=== PATIENT | male | born 1980 | race Two or more races ===

== ENCOUNTER 2020-03-21 23:35 | Inpatient (IN) | payer BC, OTHER ==
[~2020-03-21] VITALS: Ht 175.3 cm; Wt 117.9 kg
[~2020-03-21 23:35] MED LIST: NKM
[2020-03-21] MEDS ORDERED: Aspirin Baby 81mg ORAL ONE (23:45)
[2020-03-21] MEDS ORDERED: Pantoprazole Inj IVP ONE (23:45)
--- NOTE | 2020-03-21 23:45 | NUR ---
ED Nurse Note: pt presents to ED from home c/o mid-sternal CP that radiates to his R arm, teeth and head. pt states that the initial onset was 1 week ago but usually goes away after an hour or two. this episode started 1 hour SMELLER while pt was resting, denies N/V associated with the pain. rates the px a 5/10 that he describes as "pressure."
[2020-03-21 23:47] VITALS: BP 131/100
--- NOTE | 2020-03-21 23:48 | Emergency Room Report ---
History of Present Illness General Chief Complaint: Chest Pain Source: Patient Present Illness HPI This is a 40-year-old male with no past medical history. He presents with chief complaint chest pain. He said is been on and off for a week. Usually lasts about 2 hours. He said he has pain and localized to the epigastric area. Radiating to his back and jaw and teeth area. He said right arm felt numb. Nothing made it better. Nothing made it worse. This most recent episode occurred about an hour ago. It occurred while he was sitting down after eating. He denies any fever chills but denies any nausea vomiting. No diaphoresis. No shortness of breath. Allergies: Coded Allergies: No Known Allergies (Unverified , 05/08/13) COVID-19 Screening Contact w/high risk pt: No Recent Travel to affected area: No Experienced COVID-19 symptoms?: No COVID-19 Testing performed OUTREACH CLINICIAN: No Patient History Past Medical History: none, see triage record, old chart reviewed Past Surgical History: none Pertinent Family History: none Social History: Denies: smoking Immunizations: other Reviewed Nursing Documentation: PMH: Agreed; PSxH: Agreed Nursing Documentation-PMH Past Medical History: No Stated History Hx Cardiac Problems: No Hx Hypertension: No Hx Pacemaker: No Hx Asthma: No Hx COPD: No Hx Diabetes: No Hx Cancer: No Hx Gastrointestinal Problems: No Hx Dialysis: No History Of Psychiatric Problem: No Hx Neurological Problems: No Hx Cerebrovascular Accident: No Hx Seizures: No Review of Systems Eye: Denies: eye pain, blurred vision ENT: Denies: ear pain, nose congestion, throat swelling Respiratory: Denies: cough, shortness of breath Cardiovascular: Reports: chest pain; Denies: palpitations Gastrointestinal: Denies: abdominal pain, diarrhea, nausea, vomiting Musculoskeletal: Denies: back pain, joint pain Skin: Denies: rash Neurological: Denies: headache, numbness Endocrine: Denies: increased thirst, increased urine Hematologic/Lymphatic: Denies: easy bruising All Other Systems: negative except mentioned in HPI Physical Exam Vital Signs Date Time Temp Pulse Resp B/P (MAP) Pulse Ox O2 Delivery O2 Flow Rate FiO2 03/21/20 23:41 97.7 95 20 131/100 (110) 100 Room Air Vitals with high blood pressure Sp02 EP Interpretation: reviewed, normal General Appearance: well appearing, no apparent distress, alert, obese Head: normocephalic, atraumatic Eyes: bilateral eye PERRL, bilateral eye EOMI ENT: hearing grossly normal, normal pharynx Neck: full range of motion, supple, no meningismus Respiratory: chest non-tender, lungs clear, normal breath sounds Cardiovascular #1: regular rate, rhythm, no murmur Gastrointestinal: normal bowel sounds, non tender, no mass, no organomegaly, no bruit, non-distended Musculoskeletal: back normal, normal range of motion, gait/station normal Psychiatric: mood/affect normal Medical Decision Making Diagnostic Impression: Primary Impression: Chest pain Qualified Codes: R07.9 - Chest pain, unspecified Additional Impression: Obesity (BMI 35.0-39.9 without comorbidity) ER Course Patient presents with chest pain. It is intermittent in nature is been going on for a week. This is concerning for potential ACS. Could also be reflux, pneumonia, PE, dissection to name a few. He is pain-free now. [place] better. Because of his risk factors, will admit for chest pain rule out. I discussed the case with Dr. Stacy who will admit. EKG Diagnostic Results Rate: normal Rhythm: NSR ST Segments: no acute changes Rhythm Strip Diag. Results EP Interpretation: yes Rate: 90 Rhythm: NSR, no PVC's, no ectopy Chest X-Ray Diagnostic Results Chest X-Ray Diagnostic Results : Chest X-Ray Ordered: Yes # of Views/Limited/Complete: 1 View Indication: Chest Pain EP Interpretation: Yes Interpretation: no consolidation, no effusion, no pneumothorax, no acute cardiopulmonary disease Impression: No acute disease Electronically Signed by: Casimiro Gallo MD Last Vital Signs Date Time Temp Pulse Resp B/P (MAP) Pulse Ox O2 Delivery O2 Flow Rate FiO2 03/21/20 23:41 97.7 95 20 131/100 (110) 100 Room Air Status: improved Disposition: ADMITTED INPATIENT Condition: Serious Casimiro Gallo MD March 21, 2020 23:48
[2020-03-21 23:58] LABS: BASOPHILS % (AUTO) 0.6 % (0.0-2.0); EOSINOPHILS % (AUTO) 1.6 % (0.0-3.0); HEMATOCRIT 45.7 % (42.0-52.0); HEMOGLOBIN 16.1 G/DL (14.2-18.0); LYMPHOCYTES % (AUTO) 36.4 % (20.0-45.0); MEAN CORPUSCULAR VOLUME 81 FL (80-99); NEUTROPHILS % (AUTO) 55.3 % (45.0-75.0); PLATELET COUNT 282 K/UL (150-450); RED BLOOD COUNT 5.63 M/UL (4.70-6.10); RED CELL DISTRIBUTION WIDTH 11.5 % (11.6-14.8); WHITE BLOOD COUNT 9.8 K/UL (4.8-10.8)
[2020-03-22] VITALS (7 sets, daily range): BP systolic 116–140; BP diastolic 77–85
[2020-03-22 00:08] LABS: ANION GAP 8 mmol/L (5-15); BLOOD UREA NITROGEN 16 mg/dL (7-18); CALCIUM 9.2 MG/DL (8.5-10.1); CARBON DIOXIDE 30 MMOL/L (21-32); CHLORIDE 100 MMOL/L (98-107); CREATININE 1.1 MG/DL (0.55-1.30); POTASSIUM 3.8 MMOL/L (3.5-5.1); SODIUM 138 MMOL/L (136-145)
[2020-03-22 00:13] LABS: ALANINE AMINOTRANSFERASE 82 U/L (12-78); ALBUMIN 3.9 G/DL (3.4-5.0); ALBUMIN/GLOBULIN RATIO 0.8 (1.0-2.7); ALKALINE PHOSPHATASE 85 U/L (46-116); ASPARTATE AMINO TRANSFERASE 43 U/L (15-37); BILIRUBIN,TOTAL 0.6 MG/DL (0.2-1.0)
[2020-03-22 01:01] LABS: APPEARANCE,URINE CLEAR; BILIRUBIN, URINE NEGATIVE (NEGATIVE); COLOR,URINE PALE YELLOW; GLUCOSE, URINE (UA) NEGATIVE (NEGATIVE); KETONES,URINE NEGATIVE (NEGATIVE); LEUKOCYTE ESTERASE ,URINE NEGATIVE (NEGATIVE); NITRITE,URINE NEGATIVE (NEGATIVE); PH,URINE 6.5 (4.5-8.0); PROTEIN,URINE NEGATIVE (NEGATIVE); UROBILINOGEN,URINE 1 MG/DL (0.0-1.0)
--- NOTE | 2020-03-22 01:09 | NUR ---
ED Nurse Note: reports given to JACIEL Cohen, asked to bring pt up in 10 min
--- NOTE | 2020-03-22 02:20 | NUR ---
NURSE NOTES: Received patient report from DESIREE Richards RN. Patient transferred from ER via [facility] without incident. Patient is AO x 4 on room air. He shows no signs of distress at the time. He says he feels pressure on his chest when pushed on abdomen. IV patent and flushed. There are no signs of erythema, infiltration, or bleeding at the time. Bed in the lowest position, call light within reach, side rails up x 2. Called Dr. Stacy for admitting orders, awaiting for his call. Will continue plan of care.
--- NOTE | 2020-03-22 06:40 | NUR ---
Called for dr. Stacy again to ask for admitting orders. Awaiting for response.
--- NOTE | 2020-03-22 07:42 | NUR ---
HAND-OFF: Report given to JACIEL Camacho. Patient shows no signs of distress or pain at the time. Still have not gotten admition orders, endorsed to Timi. .
--- NOTE | 2020-03-22 07:53 | NUR ---
NURSE NOTES: Received pt from RN Vicki [id number]. Pt is alert and awake, pt is in RA, no SOB or acute respiratory distress noted. pt has intact iv access LAC 20g SL.Pt is on continues heart monitoring.pt is eating breakfast by observation. Dr Stacy called now and gave RN orders noted and carried out. all needs attended, bed is locked and is in the lowest position, call light within easy reach. will continue to monitor.
[2020-03-22] MEDS ORDERED: Miralax 17gm pkt ORAL PRN (08:00)
[2020-03-22] MEDS: Omnipaque-300 100ml vial INJ SCH (08:00)
--- NOTE | 2020-03-22 08:14 | NUR ---
NURSE NOTES: pt signed consent form for contrast.
[2020-03-22 08:57] LABS: CHOLESTEROL 122 MG/DL (< 200); HDL CHOLESTEROL 34 MG/DL (40-60); TRIGLYCERIDES 90 MG/DL (30-150)
[2020-03-22] MEDS ORDERED: Aspirin Baby 81mg ORAL SCH (09:00)
--- NOTE | 2020-03-22 09:53 | NUR ---
CASE MANAGEMENT:REVIEW 40 YR OLD MALE PRESENTED TO ER CC: CHEST PAIN SI: ACS. OBESITY 97.7 95 20 131/100 100% ON RA GLUCOSE+167 AST/ALT+43/82 TROPONIN(-) IS: ASA PO IV PROTONIX CHEST XRAY : TO TELEMETRY DCP: FROM HOME PLAN: CT CHEST 2DECHO
--- NOTE | 2020-03-22 10:51 | Diagnostic Imaging Report ---
Procedure: XRAY Chest 1v Reason for study: Chest pain Comparison films: None. FINDINGS: A single one view chest is obtained. Vascularity is normal. The lung earl are clear bilaterally. Cardiac and mediastinal silhouette are within normal limits. CP angles are sharp. The bony thorax appear unremarkable. IMPRESSION: NO ACUTE CARDIOPULMONARY DISEASE.
--- NOTE | 2020-03-22 11:04 | Diagnostic Imaging Report ---
EXAM: CT CT Chest Abdomen Pelvis w/Cont INDICATION: Chest pain that radiates to the arm teeth and head. Abdominal discomfort. COMPARISON: None TECHNIQUE: Axial images were obtained through the chest, abdomen and pelvis with intravenous contrast. Sagittal and coronal reformats are generated. All CT scans at this facility are performed using dose modulation techniques as appropriate to a performed exam including the following: automated exposure control with adjustment of the mA and/or kV according to patient size. RADIATION DOSE: CTDIvol: 114.2 mGy DLP: 1598.6 mGy-cm Dose information generated by the CT scanner is available in PACS. CHEST FINDINGS: The lungs are clear bilaterally. Cardiac and mediastinal structures are within normal limits. There is no pathologic size adenopathy. There is no effusion. ABDOMEN/PELVIS FINDINGS: The liver is diffusely hypodense and fatty. Spleen is homogeneous. Gallbladder is without sludge or stone and there is no wall thickening. The pancreas is unremarkable. Adrenals are normal in morphology. Kidneys are unremarkable except for small left renal cyst. Small bowel loops are nondistended. Mild increased stool lucencies noted throughout the colon. The appendix is normal. There is no free fluid or free air. No pathologic adenopathy demonstrated. Urinary bladder appears unremarkable. There are no suspicious superficial soft tissue or osseous abnormality. IMPRESSION: NO SIGN OF ACUTE DISEASE IN THE CHEST, ABDOMEN AND PELVIS. FATTY LIVER. LEFT RENAL CYST. MILD INCREASED STOOL LUCENCIES THROUGHOUT THE COLON
--- NOTE | 2020-03-22 13:18 | Consultation ---
History of Present Illness General Date patient seen: March 22, 2020 Chief Complaint: Chest Pain Present Illness HPI 40-year-old male with no past medical history presented to ER with chief complaint chest pain, on and off for a week. Usually lasts about 2 hours. He said he has pain and localized to the epigastric area. Radiating to his back and jaw and teeth area. It occurred while he was sitting down after eating. He denies any fever chills but denies any nausea vomiting. He is admitted to telemetry for further management. Allergies: Coded Allergies: No Known Allergies (Unverified , 05/08/13) Medication History Scheduled No Known Medications* (NKM - No Known Medications*), 0 ., (Reported) Patient History Healthcare decision maker Resuscitation status Advanced Directive on File Past Medical/Surgical History Past Medical/Surgical History: (1) Obesity (BMI 35.0-39.9 without comorbidity) Review of Systems All Other Systems: negative except mentioned in HPI Physical Exam General Appearance: obese Lines, tubes and drains: peripheral HEENT: normocephalic, atraumatic Neck: non-tender, normal alignment, supple Respiratory/Chest: chest wall non-tender, lungs clear Breasts: no masses Cardiovascular/Chest: normal peripheral pulses, normal rate Abdomen: normal bowel sounds, non tender Genitourinary/Rectal: normal genital exam, normal rectal exam Extremities: normal range of motion, non-tender Skin Exam: normal pigmentation Last 24 Hour Vital Signs Date Time Temp Pulse Resp B/P (MAP) Pulse Ox O2 Delivery O2 Flow Rate FiO2 03/22/20 12:00 98.4 96 18 126/84 (98) 100 03/22/20 11:34 77 03/22/20 09:00 Room Air 03/22/20 08:00 98.1 95 18 140/85 (103) 99 03/22/20 07:43 92 03/22/20 04:00 97.7 75 20 116/77 (90) 98 03/22/20 04:00 73 03/22/20 02:59 86 03/22/20 02:16 Room Air 03/22/20 01:35 97.7 20 133/82 97 Room Air 03/22/20 01:00 97.7 20 133/82 (99) 97 03/22/20 00:19 128/78 5/28/20 23:47 95 20 Room Air 03/21/20 23:47 97.7 95 20 131/100 100 Room Air 03/21/20 23:41 97.7 95 20 131/100 (110) 100 Room Air Intake and Output 03/21/20 03/22/20 19:00 07:00 Intake Total 50 ml Balance 50 ml Intake Oral 50 ml # Voids 1 Laboratory Tests Test 03/21/20 23:45 03/22/20 00:15 03/22/20 08:20 03/22/20 12:30 White Blood Count 9.8 K/UL (4.8-10.8) Red Blood Count 5.63 M/UL (4.70-6.10) Hemoglobin 16.1 G/DL (14.2-18.0) Hematocrit 45.7 % (42.0-52.0) Mean Corpuscular Volume 81 FL (80-99) Mean Corpuscular Hemoglobin 28.5 PG (27.0-31.0) Mean Corpuscular Hemoglobin Concent 35.1 G/DL (32.0-36.0) Red Cell Distribution Width 11.5 % (11.6-14.8) L Platelet Count 282 K/UL (150-450) Mean Platelet Volume 7.3 FL (6.5-10.1) Neutrophils (%) (Auto) 55.3 % (45.0-75.0) Lymphocytes (%) (Auto) 36.4 % (20.0-45.0) Monocytes (%) (Auto) 6.0 % (1.0-10.0) Eosinophils (%) (Auto) 1.6 % (0.0-3.0) Basophils (%) (Auto) 0.6 % (0.0-2.0) Sodium Level 138 MMOL/L (136-145) Potassium Level 3.8 MMOL/L (3.5-5.1) Chloride Level 100 MMOL/L (98-107) Carbon Dioxide Level 30 MMOL/L (21-32) Anion Gap 8 mmol/L (5-15) Blood Urea Nitrogen 16 mg/dL (7-18) Creatinine 1.1 MG/DL (0.55-1.30) Estimat Glomerular Filtration Rate > 60 mL/min (>60) Glucose Level 167 MG/DL (74-106) H Calcium Level 9.2 MG/DL (8.5-10.1) Total Bilirubin 0.6 MG/DL (0.2-1.0) Aspartate Amino Transf (AST/SGOT) 43 U/L (15-37) H Alanine Aminotransferase (ALT/SGPT) 82 U/L (12-78) H Alkaline Phosphatase 85 U/L (46-116) Troponin I 0.000 ng/mL (0.000-0.056) 0.000 ng/mL (0.000-0.056) Total Protein 8.5 G/DL (6.4-8.2) H Albumin 3.9 G/DL (3.4-5.0) Globulin 4.6 g/dL Albumin/Globulin Ratio 0.8 (1.0-2.7) L Urine Color Pale yellow Urine Appearance Clear Urine pH 6.5 (4.5-8.0) Urine Specific [place] 1.015 (1.005-1.035) Urine Protein Negative (NEGATIVE) Urine Glucose (UA) Negative (NEGATIVE) Urine Ketones Negative (NEGATIVE) Urine Blood Negative (NEGATIVE) Urine Nitrite Negative (NEGATIVE) Urine Bilirubin Negative (NEGATIVE) Urine Urobilinogen 1 MG/DL (0.0-1.0) H Urine Leukocyte Esterase Negative (NEGATIVE) Urine Opiates Screen Negative (NEGATIVE) Urine Barbiturates Screen Negative (NEGATIVE) Phencyclidine (PCP) Screen Negative (NEGATIVE) Urine Amphetamines Screen Negative (NEGATIVE) Urine Benzodiazepines Screen Negative (NEGATIVE) Urine Cocaine Screen Negative (NEGATIVE) Urine Marijuana (THC) Screen Negative (NEGATIVE) Triglycerides Level 90 MG/DL (30-150) Cholesterol Level 122 MG/DL (< 200) LDL Cholesterol 85 mg/dL (<100) HDL Cholesterol 34 MG/DL (40-60) L Cholesterol/HDL Ratio 3.6 (3.3-4.4) Stool Occult Blood Pending Height (Feet): 5 Height (Inches): 9.00 Weight (Pounds): 260 Medications Current Medications Medications (Trade) Dose Ordered Sig/Katerine Route PRN Reason Start Time Stop Time Status Last Admin Dose Admin Acetaminophen (Tylenol) 650 mg Q6H PRN ORAL PAIN/FEVER 03/22/20 08:00 04/21/20 07:59 Aspirin (ASA) 81 mg DAILY ORAL 03/22/20 09:00 05/06/20 08:59 03/22/20 09:26 Barium Sulfate (Readi-Cat 2) 450 ml NOW PRN ORAL Radiology Procedure 03/22/20 08:00 03/24/20 07:58 Docusate Sodium (Colace) 250 mg BID ORAL 03/22/20 18:00 04/21/20 17:59 Heparin Sodium (Porcine) (Heparin 5000 units/ml) 5,000 units EVERY 8 HOURS SUBQ 03/22/20 14:00 05/06/20 13:59 Iohexol (OMNIPAQUE-300 100ml) 100 ml ONCE INJ 03/22/20 08:00 03/24/20 07:59 Ondansetron HCl (Zofran) 4 mg Q4H PRN IVP Nausea & Vomiting 03/22/20 08:00 04/21/20 07:59 Pantoprazole (Protonix) 40 mg DAILY ORAL 03/22/20 09:00 04/21/20 08:59 03/22/20 09:26 Polyethylene Glycol (Miralax) 17 gm DAILY PRN ORAL Constipation 03/22/20 08:00 04/21/20 07:59 03/22/20 11:13 Assessment/Plan Problem List: (1) Chest pain ICD Codes: R07.9 - Chest pain, unspecified SNOMED: 02260922, 624142023 Qualifiers: Qualified Codes: R07.9 - Chest pain, unspecified (2) Mild essential hypertension ICD Codes: I10 - Essential (primary) hypertension SNOMED: 96666406 (3) Constipation ICD Codes: K59.00 - Constipation, unspecified SNOMED: 56246639 (4) Obesity (BMI 35.0-39.9 without comorbidity) ICD Codes: E66.9 - Obesity, unspecified SNOMED: 151407014, 949613208 Assessment/Plan: telemetry monitoring serial troponin echo reviewed CT chest reviewed, no pathology Ion Thomas MD March 22, 2020 13:18
[2020-03-22] MEDS ORDERED: Heparin 5000 units/ml inj SUBQ SCH (14:00)
[2020-03-22] MEDS: Docusate 100mg cap ORAL SCH ×2 (14:12→17:34)
[2020-03-22] MEDS: Lactulose 20gm/30ml UDC ORAL SCH ×2 (14:12→17:34)
--- NOTE | 2020-03-22 14:55 | NUR ---
[facility] RECEIVED CALL [facility] TO PATIENT'S ROOM SO THEY CAN SPEAK DIRECTLY IF PATIENT WILL BE DISCHARGED IN 1-2 DAYS [facility] IS NOT INTERESTED IN TRANSFERRING IF PATIENT WILL BE HERE LONGER THAN 48HRS THEN THE [facility] WANTS TO TRANSFER PATIENT
[2020-03-22] MEDS: Sucralfate 1gm tab ORAL SCH (16:44)
--- NOTE | 2020-03-22 16:50 | NUR ---
*-* INSRUANCE * ALL CLINICALS AND REVIEWS HAVE BEEN FAXED TO: [facility] F: [phone]
[2020-03-22] MEDS ORDERED: Docusate 250mg cap ORAL SCH (18:00)
--- NOTE | 2020-03-22 18:11 | History & Physical ---
History and Physical History & Physicial James Stacy MD March 22, 2020 18:11
--- NOTE | 2020-03-22 19:08 | NUR ---
HAND-OFF: Report given to BARBARA PELLETIER. Pt is awake and stable, Endorsed plan of care.
--- NOTE | 2020-03-22 19:51 | NUR ---
NURSE NOTES: RECEIVED PATIENT LYING IN BED, AWAKE, ALERT/ORIENTED X4, VERBALLY RESPONSIVE, DENIES PAIN. ROOM AIR, NO SIGNS AND SYMPTOMS OF ACUTE CARDIO RESPIRATORY DISTRESS/SHORTNESS OF BREATH, DENIES CHEST PAIN, NO PERIPHERAL EDEMA NOTED, SINUS RHYTHM ON PROCESSING LEAD. IV INTACT TO LEFT AC/GAUGE 20, SALINE LOCK, NO REDNESS/SWELLING NOTED TO SITE. ABDOMEN ROUND/SOFT/NON TENDER/AUDIBLE BOWEL SOUNDS, NO NAUSEA/VOMITING. SIDE RAILS UP X2 FOR MOBILITY, BED IN LOWEST POSITION FOR SAFETY, ENCOURAGED PATIENT TO UTILIZE CALL LIGHT FOR ASSISTANCE, VERBALIZED UNDERSTANDING. CONTINUE WITH CURRENT PLAN OF CARE. NAD.
--- NOTE | 2020-03-22 21:08 | NUR ---
NURSE NOTES: PM SNACK PROVIDED, TOLERATED WELL-
--- NOTE | 2020-03-22 23:00 | History and Physical Report ---
DATE OF ADMISSION: 03/22/2020 CHIEF COMPLAINT: Right-sided abdominal pain, chest pain. HISTORY OF PRESENT ILLNESS: This is a 40-year-old very delightful gentleman, denies any past medical history or past surgical history, who presented to the hospital complaining about right-sided chest pain associated with abdominal pain. No nausea or vomiting. Complained about constipation. Pain is improving with stool softener, worsening with meals. Denies any loss of consciousness. Denies any fall or head trauma or abdominal trauma. However, patient stated he has been having a dark stool for past 2 days. Has been improved today. Patient's pain is mostly located in the right side of abdominal wall and epigastric, radiated to the back. Shortly after initial evaluation in the emergency department, patient was admitted to the hospital with atypical chest pain as well as right-sided abdominal pain. PAST MEDICAL HISTORY/PAST SURGICAL HISTORY: None. MEDICATIONS AT HOME: None. ALLERGIES: No known drug allergies. SOCIAL HISTORY: Denies any smoking, alcohol, or drugs at this time. However, he quit smoking about 6 years ago on and off for 7 to 8 years. He quit drinking in October of 2019. 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 FAMILY HISTORY: Mother and brother, history of diabetes. No history of coronary disease runs in the family. REVIEW OF SYSTEMS: Mostly as above. Denies any dysuria, frequency, or hematuria. Complained of dark stool on and off for past 2 days. It has been resolved. Complained of bloatedness, right-sided abdominal pain, right-sided chest pain radiated to the back, gas, and belching. Denies any loss of consciousness. Denies any fall or head trauma. PHYSICAL EXAMINATION: VITAL SIGNS: On admission from the emergency department, temperature 97.7, pulse of 95, respirations 20, and blood pressure 131/100. GENERAL: Patient is awake, responsive, no acute distress. HEAD AND NECK: Pupils are equal and reactive to light. Extraocular movements are intact. Neck was supple. No JVD. LUNGS: Good air entry. No wheezing or rales. HEART: S1, S2. Regular rhythm. No murmurs or gallops. ABDOMEN: Soft, nondistended. Morbidly obese. Tenderness in the mid abdominal area, epigastric area, right upper quadrant on deep palpation. No rebound tenderness. No fluid shift. EXTREMITIES: No cyanosis, clubbing, or edema. NEUROLOGIC: Cranial nerves II through XII grossly intact. Motor is 5/5 in all extremities. Gait is intact. RECTAL/GENITOURINARY: Refused and deferred. PSYCHIATRIC: Mood and affect is intact. SKIN: Has a tattoo on the upper extremity was noted. No sign of infection or rash on extremities. LABORATORY DATA: On admission WBC of 9.8, hemoglobin 16, hematocrit 45, platelet is 282. Sodium 138, potassium 3.8, chloride 100, bicarbonate 30, BUN 16, creatinine 1.1, glucose is 167. AST of 43, ALT of 82, alkaline phosphatase was 85. First and second troponins negative. Albumin is 3.9. Total cholesterol level is 122. Urine drug screen is negative. Urinalysis is essentially unremarkable. No leukocytes or nitrites. Patient's chest x-ray, no acute cardiopulmonary disease. CT scan of the chest, abdomen, and pelvis, no sign of acute disease in the chest, abdomen, and pelvis, fatty liver, left renal cysts and mild increased stool lucency throughout the colon. EKG sinus rhythm, ventricular rate 92, rightward axis. No ST elevation or T-wave inversion identified. Patient had an echocardiogram done showed a normal left ventricular chamber, systolic function normal, wall motion normal, left ventricular ejection fraction estimated to be 60, normal appearing valves. This is a preliminary result. Official report is still pending. ASSESSMENT: 1. Atypical chest pain. 2. Right-sided and epigastric pain, possibly due to peptic ulcer disease. 3. Morbid obesity. PLAN: Admit patient to monitored unit. We will follow up laboratory including hemoglobin. Discussed with Dr. Thomas, Pulmonary Critical Care. If patient's status improves, consider discharge home in the morning. DVT prophylaxis, SCD. Code status is Full Code. We will start patient on a Protonix as well as Carafate. We will discuss plan of care extensively with the patient. James Stacy M.D. DR: MERCEDES JOB#: [id number] CC:
[2020-03-23] VITALS: BP 124/76
[2020-03-23 04:00] VITALS: BP 127/81
[2020-03-23] MEDS: Sucralfate 1gm tab ORAL SCH ×2 (06:24→12:00)
--- NOTE | 2020-03-23 06:33 | NUR ---
NURSE NOTES: RESTED WELL, NO SIGNIFICANT CHANGE OF CONDITION NOTED THROUGHOUT THE NIGHT. SAFETY MAINTAINED. NAD.
--- NOTE | 2020-03-23 07:30 | NUR ---
NURSE NOTES: RECEIVED PATIENT A/A/OX4, SITTING IN A CHAIR. HAD BREAKFAST AND TOLERATING FOOD INTAKE WELL. NO ACUTE RESP DISTRESS NOTED. IV ACCESS PATENT AND INTACT. AMBULATES WITH STEADY GAIT. SKIN IS INTACT. KEPT BED IN THE LOWEST POSITION. SIDERAILS ARE UP X2, BRAKES ENGAGED AND BED LOCK @ ALL TIMES. YELLOW GOWN WORN AND YELLOW SOCKS. WILL CONT TO MONITOR.
--- NOTE | 2020-03-23 07:30 | NUR ---
HAND-OFF: Report given to BARBARA SUGGS.
[2020-03-23] MEDS: Omnipaque-300 100ml vial INJ SCH (07:46)
[2020-03-23 08:00] VITALS: BP 116/79
[2020-03-23] MEDS: Docusate 100mg cap ORAL SCH ×2 (08:16→12:00)
[2020-03-23] MEDS: Lactulose 20gm/30ml UDC ORAL SCH ×2 (08:17→12:00)
[2020-03-23 08:39] LABS: BASOPHILS % (AUTO) 0.6 % (0.0-2.0); EOSINOPHILS % (AUTO) 2.3 % (0.0-3.0); HEMATOCRIT 42.5 % (42.0-52.0); HEMOGLOBIN 14.8 G/DL (14.2-18.0); LYMPHOCYTES % (AUTO) 27.7 % (20.0-45.0); MEAN CORPUSCULAR VOLUME 82 FL (80-99); MONOCYTES % (AUTO) 9.9 % (1.0-10.0); NEUTROPHILS % (AUTO) 59.6 % (45.0-75.0); PLATELET COUNT 266 K/UL (150-450); RED CELL DISTRIBUTION WIDTH 11.6 % (11.6-14.8); WHITE BLOOD COUNT 9.5 K/UL (4.8-10.8)
--- NOTE | 2020-03-23 08:39 | General Progress Note ---
Assessment/Plan Problem List: (1) Fatty liver ICD Codes: K76.0 - Fatty (change of) liver, not elsewhere classified SNOMED: 228527865 (2) Elevated LFTs ICD Codes: R79.89 - Other specified abnormal findings of blood chemistry SNOMED: 740496952, 702238374 (3) Constipation ICD Codes: K59.00 - Constipation, unspecified SNOMED: 58854272 (4) Obesity (BMI 35.0-39.9 without comorbidity) ICD Codes: E66.9 - Obesity, unspecified SNOMED: 566789725, 845013936 (5) Bloating ICD Codes: R14.0 - Abdominal distension (gaseous) SNOMED: 382605246 Assessment/Plan: good BM with laxatives CT reviewed no alarming sign and symptoms ok to dc GI stand point Subjective ROS Limited/Unobtainable: Yes Allergies: Coded Allergies: No Known Allergies (Unverified , 05/08/13) Objective Last 24 Hour Vital Signs Date Time Temp Pulse Resp B/P (MAP) Pulse Ox O2 Delivery O2 Flow Rate FiO2 03/23/20 04:00 97.2 89 18 127/81 (96) 96 03/23/20 04:00 Room Air 03/23/20 04:00 74 03/23/20 00:00 Room Air 03/23/20 00:00 98.7 93 18 124/76 (92) 97 03/23/20 00:00 100 03/22/20 21:00 Room Air 03/22/20 20:00 81 03/22/20 20:00 97.5 91 18 121/79 (93) 99 03/22/20 16:03 87 03/22/20 15:52 97.9 93 18 118/82 (94) 99 03/22/20 12:00 98.4 96 18 126/84 (98) 100 03/22/20 11:34 77 03/22/20 09:00 Room Air Intake and Output 03/22/20 03/23/20 18:59 06:59 Intake Total 490 ml 480 ml Balance 490 ml 480 ml Intake Oral 490 ml 480 ml # Voids 3 2 # Bowel Movements 2 1 Laboratory Tests 03/22/20 12:30: Stool Occult Blood [Pending] 03/23/20 08:00: White Blood Count [Pending], Red Blood Count [Pending], Hemoglobin [Pending], Hematocrit [Pending], Mean Corpuscular Volume [Pending], Mean Corpuscular Hemoglobin [Pending], Mean Corpuscular Hemoglobin Concent [Pending], Red Cell Distribution Width [Pending], Platelet Count [Pending], Mean Platelet Volume [ Pending], Neutrophils (%) (Auto) [Pending], Lymphocytes (%) (Auto) [Pending], Monocytes (%) (Auto) [Pending], Eosinophils (%) (Auto) [Pending], Basophils (%) (Auto) [Pending] Height (Feet): 5 Height (Inches): 9.00 Weight (Pounds): 260 General Appearance: alert EENT: normal ENT inspection Neck: supple Cardiovascular: normal rate Respiratory/Chest: lungs clear Abdomen: normal bowel sounds, non tender, soft Extremities: non-tender Florentin Solares MD March 23, 2020 08:39
[2020-03-23 11:49] VITALS: BP 121/74
--- NOTE | 2020-03-23 13:16 | Internal Med Progress Note ---
Subjective Date of Service: March 23, 2020 Physician Name Aly Black Attending Physician James Stacy MD Current Medications Medications (Trade) Dose Ordered Sig/Katerine Route PRN Reason Start Time Stop Time Status Last Admin Dose Admin Acetaminophen (Tylenol) 650 mg Q6H PRN ORAL PAIN/FEVER 03/22/20 08:00 04/21/20 07:59 Barium Sulfate (Readi-Cat 2) 450 ml NOW PRN ORAL Radiology Procedure 03/22/20 08:00 03/24/20 07:58 Docusate Sodium (Colace) 100 mg THREE TIMES A DAY ORAL 03/22/20 13:15 04/21/20 13:14 03/23/20 12:00 Iohexol (OMNIPAQUE-300 100ml) 100 ml ONCE INJ 03/22/20 08:00 03/24/20 07:59 Lactulose (Cephulac) 30 gm THREE TIMES A DAY ORAL 03/22/20 13:15 04/21/20 13:14 03/23/20 12:00 Mineral Oil (Fleet's Mineral Oil Enema) 133 ml EVERY OTHER DAY RECTAL 03/24/20 09:00 04/23/20 08:59 Ondansetron HCl (Zofran) 4 mg Q4H PRN IVP Nausea & Vomiting 03/22/20 08:00 04/21/20 07:59 Pantoprazole (Protonix) 40 mg BID ORAL 03/22/20 18:00 04/21/20 08:59 03/23/20 08:16 Polyethylene Glycol (Miralax) 17 gm QHS ORAL 03/23/20 21:00 04/21/20 07:59 Sucralfate (Carafate) 1 gm BEFORE MEALS ORAL 03/22/20 16:30 06/20/20 16:29 03/23/20 12:00 Allergies: Coded Allergies: No Known Allergies (Unverified , 05/08/13) ROS Limited/Unobtainable: No Constitutional: Reports: no symptoms HEENT: Reports: no symptoms Cardiovascular: Reports: no symptoms Respiratory: Reports: no symptoms Gastrointestinal/Abdominal: Reports: abdominal pain Genitourinary: Reports: no symptoms Neurologic/Psychiatric: Reports: no symptoms Subjective 40 YIO M admitted with epigastric pain. Cover for Int Med-DR Stacy Objective Last Vital Signs Date Time Temp Pulse Resp B/P (MAP) Pulse Ox O2 Delivery O2 Flow Rate FiO2 03/23/20 11:49 97.0 85 20 121/74 (90) 97 03/23/20 09:24 Room Air Laboratory Tests Test 03/23/20 08:00 White Blood Count 9.5 K/UL (4.8-10.8) Red Blood Count 5.20 M/UL (4.70-6.10) Hemoglobin 14.8 G/DL (14.2-18.0) Hematocrit 42.5 % (42.0-52.0) Mean Corpuscular Volume 82 FL (80-99) Mean Corpuscular Hemoglobin 28.6 PG (27.0-31.0) Mean Corpuscular Hemoglobin Concent 34.9 G/DL (32.0-36.0) Red Cell Distribution Width 11.6 % (11.6-14.8) Platelet Count 266 K/UL (150-450) Mean Platelet Volume 7.3 FL (6.5-10.1) Neutrophils (%) (Auto) 59.6 % (45.0-75.0) Lymphocytes (%) (Auto) 27.7 % (20.0-45.0) Monocytes (%) (Auto) 9.9 % (1.0-10.0) Eosinophils (%) (Auto) 2.3 % (0.0-3.0) Basophils (%) (Auto) 0.6 % (0.0-2.0) Intake and Output 03/22/20 03/23/20 19:00 07:00 Intake Total 490 ml 480 ml Balance 490 ml 480 ml Intake Oral 490 ml 480 ml # Voids 3 2 # Bowel Movements 2 1 Objective PHYSICAL EXAMINATION: GENERAL: Patient is awake, responsive, no acute distress. HEAD AND NECK: Pupils are equal and reactive to light. Extraocular movements are intact. Neck was supple. No JVD. LUNGS: Good air entry. No wheezing or rales. HEART: S1, S2. Regular rhythm. No murmurs or gallops. ABDOMEN: Soft, nondistended. Morbidly obese. Tenderness in the mid abdominal area, epigastric area, right upper quadrant on deep palpation. No rebound tenderness. No fluid shift. EXTREMITIES: No cyanosis, clubbing, or edema. NEUROLOGIC: Cranial nerves II through XII grossly intact. Motor is 5/5 in all extremities. Gait is intact. RECTAL/GENITOURINARY: Refused and deferred. PSYCHIATRIC: Mood and affect is intact. SKIN: Has a tattoo on the upper extremity was noted. No sign of infection or rash on extremities. Assessment/Plan Assessment/Plan ASSESSMENT: 1. Atypical chest pain. 2. Right-sided and epigastric pain, possibly due to peptic ulcer disease. 3. Morbid obesity. PLAN: 1. Admit patient to monitored unit. We will follow up laboratory 2. Dr. Thomas=Pulmonary Critical Care. 3. discharge home today; Follow up at [facility] 4. DVT prophylaxis, SCD. Code status is Full Code. 5. Continue Protonix as well as Carafate. 6. GI=Aly Justice MD March 23, 2020 13:16
[2020-03-23] MEDS ORDERED: PANTOPRAZOLE SO40 MG ORAL (13:30)
[2020-03-23] MEDS ORDERED: SUCRALFATE1 GM ORAL (13:30)
--- NOTE | 2020-03-23 14:50 | NUR ---
NURSE NOTES: DISCHARGE WITH STABLE CONDITION. VERIFIED HOME ADDRESS. REMOVED IV ACCESS. PERSONAL BELONGINGS NOTED. TOLERATED FOOD INTAKE WELL. NO C/O PAIN/DISCOMFORT. VSS. Rx AND DISCHARGE INSRUCTIONS GIVEN.
[2020-03-23] MEDS ORDERED: Miralax 17gm pkt ORAL SCH (21:00)
[2020-03-24] MEDS ORDERED: Fleet's Mineral Oil Enema RECTAL SCH (09:00)
--- NOTE | 2020-03-25 09:23 | Discharge Summary ---
Discharge Summary Discharge Summary _ DATE OF ADMISSION: 03/22/2020 DATE OF DISCHARGE: 03/23/2020 DISCHARGED BY: REASON FOR ADMISSION: 40 years old male with no significant past medical history , presented to emergency department complaining of right-sided chest pain associated with abdominal pain. Abdominal pain located mostly in the right side of the abdominal wall and epigastric region. No reported nausea and vomiting. Patient reported constipation. Pain improved with stool softener and worsened with meals. No syncope, no fall ,no head trauma . No abdominal trauma. Upon evaluation in emergency department vital signs were stable. Laboratory work-up revealed no leukocytosis , stable hemoglobin and hematocrit. Stable electrolytes and renal parameters. Troponin negative. EKG revealed sinus rhythm , no acute ischemic changes. Chest x-ray demonstrated no acute cardiopulmonary pathology. In emergency department patient received aspirin and Protonix and subsequently admitted to telemetry floor. CONSULTANTS: pulmonary Dr. Thomas GI specialist Dr. Solares [facility]SE: Patient admitted to telemetry floor. Serial troponin were negative. Telemetry showed sinus rhythm. EKG was stable. Patient was ruled out for acute myocardial infarction. Echocardiogram demonstrated preserved ejection fraction of 60%. Mild left ventricular hypertrophy. No evidence of wall motion abnormality. GI specialist seen and evaluated patient. CT scan of the abdomen and pelvis revealed no signs of acute disease in the chest, abdomen and pelvis. Fatty liver noted. Mild elevation in LFT noted: AST 43, ALT 82. Lipid panel was stable. Bowel regimen instituted. Patient started on PPI twice a day along with the Carafate. DVT prophylaxis provided. Patient had good bowel movement. Pain management was addressed as needed. Pain resolved. CT scan showed no alarming signs and symptoms. GI specialist cleared patient for discharge. Patient was reminded about sufficient fluid intake and need to increase fiber in his diet. Patient clinically stabilized and was ready for discharge. Due to rapid and unexpected improvement in patient condition, patient was discharged in 1 day. FINAL DIAGNOSES: Atypical chest pain Right-sided epigastric pain , possibly due to peptic ulcer disease Fatty liver Constipation Elevated LFT Obesity DISCHARGE MEDICATIONS: See Medication Reconciliation list. DISCHARGE INSTRUCTIONS: Patient was discharged home. Follow-up with a primary care provider in 1 to 2 weeks. I have been assigned to dictate discharge summary for this account. I was not involved in the patient's management. Aleyda Davis NP Mar 25, 2020 09:23
--- NOTE | 2020-03-25 16:41 | NUR ---
*-* INSURANCE * ALL CLINICALS AND REVIEWS HAVE BEEN FAXED TO: [employer] F:[phone]
== END 2020-03-23 16:01 | disposition home or self-care (01) | DRG 384 ==
LOC: EMR 23:49 → 2E 03-22 00:03 → EDBEDREQ 03-22 01:03
DX: K27.9 Peptic ulcer, site unspecified, unspecified as acute or chronic, without hemorrhage or perforation (principal); R07.89 Other chest pain; Z68.38 Body mass index [BMI] 38.0-38.9, adult; K76.0 Fatty (change of) liver, not elsewhere classified; I10 Essential (primary) hypertension; K59.00 Constipation, unspecified; E66.01 Morbid (severe) obesity due to excess calories
CPT/HCPCS: 36415; 71045; 71260; 74177; 80053; 80061; 80307; 81003; 82270; 84484; 85025; 93005; 93306; 96374; 99285